=== PATIENT | female | born 1930 | race Caucasian/White ===

== ENCOUNTER 2022-09-17 08:36 | Inpatient (IN) | payer OTHER, MEDICARE ==
[~2022-09-17] VITALS: Ht 152.4 cm; Wt 59.0 kg
[~2022-09-17 08:36] MED LIST: ACET-73 PO; ACET325T PO; APIX2.5T PO; BISA10SU61 RC; CALC1CAP19 PO; CARB15DR OP; DOCU-144 PO; FAMO20TA8 PO; FURO-149 PO; HYDR-3919 PO; METO25TA6 PO; MIRT7.5T11 PO; MOM PO; POTA-197 PO; SENN8.6T19 PO; SER25 PO
[2022-09-17 08:39] VITALS: BP_SYST 155
--- NOTE | 2022-09-17 08:47 | NUR ---
PT BIBA AWAKE AND ALERT AOX3. PT C/O SHARP CHEST PAIN. PT STATED SHE NEARLY FELL YESTERDAY BUT HELD HERSELF UP, STRECHING HER ARMS AND CHEST OUT, WHICH MIGHT BE CAUSE OF PAIN. PT HAS HX OF A-FIB, HTN, CHF, DEMENTIA, DEPRESSION.
--- NOTE | 2022-09-17 08:49 | NUR ---
MD DR MCKINNON AT BEDSIDE
[2022-09-17] MEDS ORDERED: traMADol HCL HCL 50 MG TABLET (ULTRAM) PO ONE (09:00)
[2022-09-17 09:21] LABS: BASOPHILS # (AUTO) 0.1 K/uL (0.0-0.2); BASOPHILS % (AUTO) 0.8 % (0.0-2.0); EOSINOPHILS # (AUTO) 0.3 K/uL (0.0-0.4); EOSINOPHILS % (AUTO) 3.9 % (0.0-4.0); HEMATOCRIT 40.4 % (36-48); HEMOGLOBIN 13.6 g/dL (12.0-16.0); LYMPHOCYTES # (AUTO) 1.4 K/uL (1.0-5.5); MEAN CORPUSCULAR HEMOGLOBIN 32 pg (27-31); MEAN CORPUSCULAR HGB CONC 34 % (32-36); MEAN CORPUSCULAR VOLUME 94 fL (79.0-98.0); MONOCYTES # (AUTO) 0.8 K/uL (0.0-1.0); MONOCYTES % (AUTO) 9.5 % (1.7-9.3); NEUTROPHILS # (AUTO) 5.7 K/uL (1.8-7.7); NEUTROPHILS % (AUTO) 68.8 % (40.0-70.0); PLATELET COUNT (AUTO) 261 K/uL (130-430); RED CELL DISTRIBUTION WIDTH 13.9 % (9.0-15.0); WHITE BLOOD COUNT (AUTO) 8.3 K/uL (4.8-10.8)
[2022-09-17 09:22] LABS: ANION GAP 9 (5-15); CHLORIDE 105 mmol/L (98-107); CREATININE 0.97 mg/dL (0.55-1.30); GLUCOSE 95 mg/dL (70-99); UREA NITROGEN, BLOOD 26 mg/dL (8-21)
[2022-09-17 09:29] LABS: ALANINE AMINOTRANSFERASE 15 U/L (12-78); ALBUMIN 2.9 g/dL (3.4-4.8); ASPARTATE AMINOTRANSFERASE 21 U/L (10-37); TOTAL BILIRUBIN 0.7 mg/dL (0.0-1.0)
[2022-09-17] MEDS ORDERED: NITROGLYCERIN 0.4 MG TAB.SUBL SL ONE (10:30)
--- NOTE | 2022-09-17 10:35 | NUR ---
Admit bed requested Patient will be admitted to care of Dr. SIFUENTES. Admitted to TELE unit. Diagnosis CHEST Inpatient (Yes or No) YES Observation (Yes or No) NO Orientation concerns or request close to nursing station (Yes or No) NO Covid Status PENDING On vent or bipap NO Isolation requirements NO Needs a sitter NO From Home (Yes or if No enter name of facility) [facility] Requires Dialysis (Yes or No) NO Med Rec Completed (Yes of No) YES
[2022-09-17 13:30] VITALS: BP_SYST 144
[2022-09-17] MEDS: NITROGLYCERIN 0.4 MG TAB.SUBL SL PRN (13:44)
--- NOTE | 2022-09-17 13:51 | NUR ---
CONSULTATION PAGED REASON FOR CONSULTATION: CHEST PAIN WAS CONSULT CALLED? Y PERSON WHO WAS NOTIFIED: HERNANDEZ CONSULTING PHYSICIAN: HARIS KULKARNI PROJECT MANAGER/TEAM COACH SPECIALTY:CARDIO PROJECT MANAGER/TEAM COACH PHONE NUMBER:[phone] REQUESTING PHYSICIAN: YARI RUEDA
[2022-09-17 16:00] VITALS: BP_SYST 153
[2022-09-17] MEDS ORDERED: NALOXONE HCL 0.4 MG/ML AMP (NARCAN) IVP PRN (18:00)
[2022-09-17] MEDS ORDERED: CARBOXYMETHYLCELLULOSE SODIUM OP PRN (18:00)
[2022-09-17] MEDS ORDERED: ACETAMINOPHEN 325 MG TABLET PO PRN (18:00)
[2022-09-17] MEDS ORDERED: MILK OF MAGNESIA 30 ML UDC PO PRN (18:00)
[2022-09-17] MEDS ORDERED: BISACODYL 10 MG/SUPPOSITORY RC PRN (18:00)
--- NOTE | 2022-09-17 18:00 | NUR ---
admitted 89 years old female,awake,alert,forgetful at times,c/o chest pain and given nitro as prn order, came and seen pt.further orders received and carried out.needs attended,call light & personal items within pt reach safety maintained.continue to monitor pt
[2022-09-17] MEDS ORDERED: METOPROLOL TARTRATE 25 MG TABLET PO ONE (18:15)
[2022-09-17] MEDS ORDERED: PEG 400/HYPROMELLOSE/GLYCERIN 15 ML DROPS OP PRN (18:15)
--- NOTE | 2022-09-17 19:25 | NUR ---
PM ASSESSMENT; -Patient is awake, alert, oriented X2. No s/s any chest pain,sob,or any acute distress noted. IV site patent no s/s any infiltration noted. VSS. Bed alarmed, side rails x3,call light within reach. All safety measures in place. Cont to monitor pt.
--- NOTE | 2022-09-17 19:27 | NUR ---
Patient will be admitted to care of [facility]. Admitted to TELE unit. Will go to room 122B. Belongings list completed. Complete and up to date summary report printed. SBAR report to be given at bedside with opportunity for questions.
[2022-09-17 19:35] VITALS: BP_SYST 119
[2022-09-17] MEDS ORDERED: CALCIUM CARBONATE PO SCH (21:00)
[2022-09-17] MEDS ORDERED: [UNRECOGNIZED DRUG - OTHER] PO SCH (21:00)
[2022-09-17] MEDS ORDERED: MIRTAZAPINE PO SCH (21:00)
[2022-09-17] MEDS ORDERED: VITAMIN D3 PO SCH (21:00)
[2022-09-17] MEDS: SENNOSIDES 8.6 MG TABLET PO SCH (21:29)
[2022-09-17] MEDS: QUEtiapine FUMARATE 25 MG TABLET PO SCH (21:29)
[2022-09-17] MEDS: MIRTAZAPINE 15 MG TABLET PO SCH (21:29)
[2022-09-17] MEDS: CALCIUM CARBONATE/VITAMIN D3 1 TAB TABLET PO SCH (21:29)
[2022-09-17] MEDS: APIXABAN 2.5 MG TABLET PO SCH (21:31)
[2022-09-18] VITALS (7 sets, daily range): BP systolic 80–152
--- NOTE | 2022-09-18 00:11 | NUR ---
ROUNDS; -Pt is resting in bed comfortably. No s/s any chest pain,sob,or any acute distress noted. IV site patent no s/s any infiltration noted. VSS. Bed alarmed, side rails x3,call light within reach. All safety measures in place. Cont to monitor pt.
--- NOTE | 2022-09-18 03:42 | NUR ---
ROUNDS; -Pt is asleep. No s/s any chest pain,sob,or any acute distress noted. Bed alarmed, side rails x3,call light within reach. All safety measures in place. Cont to monitor pt.
--- NOTE | 2022-09-18 06:23 | NUR ---
CLOSING NOTES: -Pt is asleep. No s/s any chest pain,sob,or any acute distress noted. Bed alarmed, side rails x3,call light within reach. All safety measures in place. Pt's condition stable. Will endorse to day shift nurse to cont care.
[2022-09-18] MEDS: NITROGLYCERIN 0.4 MG TAB.SUBL SL PRN (08:04)
[2022-09-18] MEDS: CALCIUM CARBONATE/VITAMIN D3 1 TAB TABLET PO SCH ×2 (09:00→21:28)
[2022-09-18] MEDS: QUEtiapine FUMARATE 25 MG TABLET PO SCH ×2 (13:00→21:30)
[2022-09-18] MEDS: FAMOTIDINE 20 MG TABLET PO SCH (13:00)
[2022-09-18] MEDS: METOPROLOL TARTRATE 25 MG TABLET PO SCH (13:02)
[2022-09-18] MEDS: POTASSIUM CHLORIDE 20 MEQ TAB.PRT.SR PO SCH (13:03)
[2022-09-18] MEDS: FUROSEMIDE 40 MG TABLET PO SCH (13:03)
[2022-09-18] MEDS: DOCUSATE SODIUM 100 MG CAPSULE PO SCH (13:03)
[2022-09-18] MEDS: APIXABAN 2.5 MG TABLET PO SCH ×2 (13:06→21:29)
[2022-09-18] MEDS: HYDROcodone/ACETAMIN 5-325 MG TAB (NORCO/ VICODIN) PO PRN ×3 (14:38→16:32)
--- NOTE | 2022-09-18 20:31 | NUR ---
PATIENT COMPLAINED OF CP DESCRIBED BY SELF THROUGH OUT DAY REGARDLESS OF INTERVENTION'S. STATED SHE HAD PREVIOUS FALL BEFORE COMING INTO HOSPITAL. UNCLEAR IF CARDIAC PAIN OR MUSCULAR SKELETON. TREATED CHEST PAIN FUR FLOOR WORKER POINTS TO CHEST STATES MY HEART IS IN PAIN SCALE OF 1/10. NOT MUCH QUIGLEY IN PAIN LEVEL. LATER IN AFTERNOON STILL COMPLAINS OF CP THIS TIME GIVEN NORCO 325. SOME RELIEF BUT LATER GIVEN ONE FURTHER NITROGLYCERIN TABS SL AND PLACED ON OXYGEN [address]. [address] GARCIA NOTIFIED WITH NO ORDERS WILL SEE PATIENT TOMORROW. HEART RHYUM AFIB AFLUTTER WITH WIDEN QRS AND ST DEPRESSION APPEARS TO OF HAD OLD [place]. TROPONIN LEVEL NORMAL SECOND TROPONIN JOHNNA THIS AFTERNOON. DOING SOME WHAT BETTER AT END OF SHIFT AND STATED THE OXYGEN AND NTG TAB SL DID HELP.
[2022-09-18] MEDS: SENNOSIDES 8.6 MG TABLET PO SCH (21:29)
[2022-09-18] MEDS: MIRTAZAPINE 15 MG TABLET PO SCH (21:30)
[2022-09-19] VITALS: BP_SYST 105
[2022-09-19 04:00] VITALS: BP_SYST 112
[2022-09-19 08:00] VITALS: BP_SYST 153
[2022-09-19] MEDS: APIXABAN 2.5 MG TABLET PO SCH ×2 (08:34→20:36)
[2022-09-19] MEDS: DOCUSATE SODIUM 100 MG CAPSULE PO SCH (08:35)
[2022-09-19] MEDS: FAMOTIDINE 20 MG TABLET PO SCH (08:35)
[2022-09-19] MEDS: METOPROLOL TARTRATE 25 MG TABLET PO SCH (08:36)
[2022-09-19] MEDS: QUEtiapine FUMARATE 25 MG TABLET PO SCH ×2 (08:37→20:36)
[2022-09-19] MEDS: POTASSIUM CHLORIDE 20 MEQ TAB.PRT.SR PO SCH (08:37)
[2022-09-19] MEDS: CALCIUM CARBONATE/VITAMIN D3 1 TAB TABLET PO SCH ×2 (08:38→20:36)
[2022-09-19] MEDS: FUROSEMIDE 40 MG TABLET PO SCH (08:38)
[2022-09-19 11:32] VITALS: BP_SYST 120
--- NOTE | 2022-09-19 12:09 | NUR ---
Social Service Assessment The patient is an 89 year old female who appears alert with confusion I completed an initial assessment with the patient's DPOA, Awilda Ordonez, via telephone. The patient resides at [facility] as a intermediate resident. Per Awilda, the patient has resided at the facility for the last six months. The patient is non ambulatory and is confined to a wheelchair when she is not in bed. Her support is in her DPOA as well as the staff and friends of her residential care center. Her Power of Supervisor [employer] is Awilda Ordonez ([phone]). her PCP was recently changed to Dr. Leiva in [place], however she was previously with Dr. Blood in [place]. The discharge plan is to return to [facility]. The DPOA was advised that the patient will be assessed for appropriate needs and services prior to discharge. Per the DPOA, she does not want the patient going to a SNF for rehab services at discharge. The DPOA is in agreement to the patient returning to [facility]. At time of discharge, the DPOA states [facility] has transport that the patient can utilize. Transportation at [facility]: [phone] Addendum: 09/19/22 at 1222 by Chrissy Rajan DP Amended: Links added.
[2022-09-19 16:06] VITALS: BP_SYST 153
--- NOTE | 2022-09-19 19:39 | NUR ---
PATIENT MUCH BETTER TODAY NOT C/O PAIN MUCH YESTERDAY. FRONT END ALIGNMENT SPECIALIST EXPLAINED TO PATIENT HEART IS GOOD PAIN MUSCULAR SKELETON. PT TO HAVE WORKED WITH PATIENT FIRST TIME TODAY. EMOTIONAL SUPPORT THERAPEUTIC COMMUNICATION GIVEN. MUCH ENCOURAGEMENT GIVEN.
[2022-09-19 20:00] VITALS: BP_SYST 149
--- NOTE | 2022-09-19 20:00 | NUR ---
RECEIVED THE PATIENT AWAKE, ALERT, AND ORIENTED X3. ABLE TO FOLLOW COMMANDS. ABLE TO VERBALIZE WISHES AND CONCERNS. VITAL SIGNS TAKEN AND RECORDED - ALL PARAMETERS WERE WITHIN NORMAL LIMITS. BEDSIDE CARE DONE. PHYSICAL ASSESSMENT DONE AND COMPLETED. DUE ORAL MEDS GIVEN AND TAKEN. NOT IN ANY ACUTE DISTRESS OR PAIN. WILL CONTINUE TO MONITOR THE PATIENT.
[2022-09-19] MEDS: MIRTAZAPINE 15 MG TABLET PO SCH (20:36)
[2022-09-19] MEDS: SENNOSIDES 8.6 MG TABLET PO SCH (20:37)
[2022-09-20] VITALS (7 sets, daily range): BP systolic 128–153
[2022-09-20] MEDS: FUROSEMIDE 40 MG TABLET PO SCH (08:14)
[2022-09-20] MEDS: CALCIUM CARBONATE/VITAMIN D3 1 TAB TABLET PO SCH ×2 (08:15→21:10)
[2022-09-20] MEDS: QUEtiapine FUMARATE 25 MG TABLET PO SCH ×2 (08:15→21:10)
[2022-09-20] MEDS: POTASSIUM CHLORIDE 20 MEQ TAB.PRT.SR PO SCH (08:15)
[2022-09-20] MEDS: FAMOTIDINE 20 MG TABLET PO SCH (08:15)
[2022-09-20] MEDS: DOCUSATE SODIUM 100 MG CAPSULE PO SCH (08:15)
[2022-09-20] MEDS: METOPROLOL TARTRATE 25 MG TABLET PO SCH (08:17)
[2022-09-20] MEDS: APIXABAN 2.5 MG TABLET PO SCH ×2 (08:19→21:11)
[2022-09-20 12:50] LABS: BILIRUBIN,URINE NEGATIVE (NEGATIVE); CLARITY/URINE CLEAR (CLEAR); COLOR,URINE YELLOW (YELLOW); GLUCOSE,URINE NEGATIVE (NEGATIVE); KETONES,URINE NEGATIVE (NEGATIVE); LEUKOCYTE ESTERASE ,URINE NEGATIVE (NEGATIVE); NITRITE, URINE NEGATIVE (NEGATIVE); PROTEIN URINE NEGATIVE (NEGATIVE); UROBILINOGEN,URINE 0.2 (0.2-1.0)
[2022-09-20 12:54] LABS: BLOOD, URINE TRACE (NEGATIVE)
[2022-09-20 14:09] LABS: BACTERIA,URINE None Seen /HPF (None Seen); RBC,URINE NONE SEEN /HPF (0-3); WBC,URINE 0-3 /HPF (0-3)
[2022-09-20 14:10] LABS: MUCUS,URINE None Seen /LPF (None Seen)
--- NOTE | 2022-09-20 15:00 | NUR ---
INFORMED MONE VERBALLY THAT THE FACILITY HAS NO VIDEO SOFTWARE ENGINEER TODAY AND TOMORROW, MONE SAID SHE WILL GET AMBULANCE TO TRANSPORT PT.
--- NOTE | 2022-09-20 15:07 | NUR ---
LEFT MESSAGE WITH MONE ELECTRICAL CALIBRATOR TO INFORM HER THAT PT HAS DC HOME ORDER BUT NOBODY TO PICK HER UP BECAUSE FACILITY MOTOR AND CONTROLS TESTER IS NOT AVAILABLE.
--- NOTE | 2022-09-20 15:41 | NUR ---
PHYSICAL THERAPY CO-SIGN The Physical Therapy Progress Notes documented by Argon Tester have been reviewed. Reviewed/Co-Signed by: Serafin Gasca Documentation Done by:DIANA APLM
--- NOTE | 2022-09-20 15:42 | NUR ---
PHYSICAL THERAPY CO-SIGN The Physical Therapy Progress Notes documented by Outreach Specialist have been reviewed. Reviewed/Co-Signed by: Serafin Gasca Documentation Done by:DIANA PALM Addendum: 09/20/22 at 1542 by Serafin Gasca PT Amended: Links added.
[2022-09-20] MEDS: MUPIROCIN 2% TOPICAL OINTMENT 22 GM TP SCH ×2 (15:49→21:15)
--- NOTE | 2022-09-20 16:10 | NUR ---
PT DISCHARGE TO [facility] (APARTMENT) P#[phone]. AMBULANCE MEDIC 1 [address] OR MIRROR INSPECTOR TIME 8:00PM PHONE #[phone]. FOR REFERENCE
--- NOTE | 2022-09-20 16:21 | NUR ---
INFORMED [facility] AT [facility] THAT PT IS GOING TO BE PICKED UP AT 8PM.
--- NOTE | 2022-09-20 19:30 | NUR ---
PER [facility], AMBULANCE CALL SAYING THEY CANNOT MANAGER BOOKS PT BECAUSE THEY ARE TOO SATURATED". THE AMBULANCE REQUEST TO ARRANGE TRANSPORT IN AM. INFORMED REPAIRER GENERAL ZENY. SHE INSTRUCTED [facility] TO FIND ANOTHER AMBULANCE.
--- NOTE | 2022-09-20 19:57 | NUR ---
Called [facility], spoke to Joseph. ETA is midnight
--- NOTE | 2022-09-20 20:07 | NUR ---
Report received from day shift RN for continuity of care. Patient stable. No distress noted. Ambulance [facility] ETA midnight.
[2022-09-20] MEDS: MIRTAZAPINE 15 MG TABLET PO SCH (21:10)
[2022-09-20] MEDS: SENNOSIDES 8.6 MG TABLET PO SCH (21:10)
--- NOTE | 2022-09-21 | NUR ---
Report given to [facility] ambulance EMT for continuity of care. Patient stable for transfer. Alert and oriented x2-3. Respiration even and unlabored. No c/o pain. Patient changed into depends and fresh gown. IV removed. avionics integration engineer removed. Patient belongings with patient. Patient ready for transfer.
[2022-09-21 00:48] VITALS: BP_SYST 139
[2022-09-21 04:00] VITALS: BP_SYST 124
[2022-09-22 09:48] LABS: ALANINE AMINOTRANSFERASE 12 U/L (12-78); ALBUMIN 2.8 g/dL (3.4-4.8); ANION GAP 6 (5-15); ASPARTATE AMINOTRANSFERASE 13 U/L (10-37); CHLORIDE 105 mmol/L (98-107); CREATININE 1.19 mg/dL (0.55-1.30); GLUCOSE 97 mg/dL (70-99); TOTAL BILIRUBIN 0.5 mg/dL (0.0-1.0); UREA NITROGEN, BLOOD 41 mg/dL (8-21)
[2022-09-22 09:54] LABS: BASOPHILS # (AUTO) 0.1 K/uL (0.0-0.2); BASOPHILS % (AUTO) 0.7 % (0.0-2.0); EOSINOPHILS # (AUTO) 0.3 K/uL (0.0-0.4); EOSINOPHILS % (AUTO) 3.1 % (0.0-4.0); HEMATOCRIT 41.8 % (36-48); LYMPHOCYTES # (AUTO) 1.4 K/uL (1.0-5.5); MEAN CORPUSCULAR HEMOGLOBIN 32 pg (27-31); MEAN CORPUSCULAR HGB CONC 34 % (32-36); MEAN CORPUSCULAR VOLUME 94 fL (79.0-98.0); MONOCYTES # (AUTO) 0.6 K/uL (0.0-1.0); MONOCYTES % (AUTO) 7.3 % (1.7-9.3); NEUTROPHILS # (AUTO) 6.1 K/uL (1.8-7.7); NEUTROPHILS % (AUTO) 71.9 % (40.0-70.0); PLATELET COUNT (AUTO) 280 K/uL (130-430); RED BLOOD CELL COUNT(AUTO) 4.45 MIL/uL (4.2-6.2); RED CELL DISTRIBUTION WIDTH 13.6 % (9.0-15.0); WHITE BLOOD COUNT (AUTO) 8.5 K/uL (4.8-10.8)
== END 2022-09-21 00:10 | disposition home or self-care (01) | DRG 206 ==
LOC: SED 08:36 → STU 10:29 → SMU 09-20 23:17
PROVIDERS: ADMIT Family Medicine; ATTEND Family Medicine
DX: M94.0 Chondrocostal junction syndrome [Tietze] (principal); E44.0 Moderate protein-calorie malnutrition; D68.59 Other primary thrombophilia; I48.20 Chronic atrial fibrillation, unspecified; F03.A0 Unspecified dementia, mild, without behavioral disturbance, psychotic disturbance, mood disturbance, and anxiety; M81.0 Age-related osteoporosis without current pathological fracture; I25.5 Ischemic cardiomyopathy; Z20.822 Contact with and (suspected) exposure to COVID-19; Z87.01 Personal history of pneumonia (recurrent); Z79.891 Long term (current) use of opiate analgesic; Z79.899 Other long term (current) drug therapy; Z85.3 Personal history of malignant neoplasm of breast; Z86.16 Personal history of COVID-19; I25.2 Old myocardial infarction; Z68.25 Body mass index [BMI] 25.0-25.9, adult; Z99.3 Dependence on wheelchair; Z87.891 Personal history of nicotine dependence; Z90.11 Acquired absence of right breast and nipple; Z90.710 Acquired absence of both cervix and uterus
CPT/HCPCS: 36415; 71045; 80053; 81000; 83880; 84484; 85025; 87045-TC; 87046; 87081; 87230-TC; 89055; 93005; 97110-GP; 97116-GP; 97530-GP; 99285; G0378

== ENCOUNTER 2022-09-21 09:38 | Inpatient (IN) | payer OTHER, MEDICARE ==
[~2022-09-21] VITALS: Ht 152.4 cm; Wt 40.8 kg
--- NOTE | 2022-09-21 09:40 | NUR ---
PT BIBA AWAKE AND CONFUSED, AOX1. PT C/O CHEST PAIN. PT WAS D/C FROM [facility] TELE FLOOR YESTERDAY.
[2022-09-21 09:42] VITALS: BP_SYST 137
--- NOTE | 2022-09-21 09:42 | NUR ---
MD DR MULLINS AT BEDSIDE
[2022-09-21] MEDS ORDERED: MORPHINE 4 MG INJ. 4 MG/ML VIAL IVP ONE ×2 (10:15→23:30)
[2022-09-21] MEDS ORDERED: NITROGLYCERIN 1 INCH (GM) OINT. TP ONE ×2 (10:15→23:30)
[2022-09-21 10:28] LABS: BASOPHILS # (AUTO) 0.1 K/uL (0.0-0.2); BASOPHILS % (AUTO) 0.7 % (0.0-2.0); EOSINOPHILS # (AUTO) 0.2 K/uL (0.0-0.4); EOSINOPHILS % (AUTO) 2.1 % (0.0-4.0); HEMATOCRIT 46.8 % (36-48); HEMOGLOBIN 15.5 g/dL (12.0-16.0); LYMPHOCYTES # (AUTO) 1.5 K/uL (1.0-5.5); MEAN CORPUSCULAR HEMOGLOBIN 31 pg (27-31); MEAN CORPUSCULAR HGB CONC 33 % (32-36); MEAN CORPUSCULAR VOLUME 94 fL (79.0-98.0); MONOCYTES # (AUTO) 0.7 K/uL (0.0-1.0); NEUTROPHILS # (AUTO) 6.7 K/uL (1.8-7.7); NEUTROPHILS % (AUTO) 73.2 % (40.0-70.0); PLATELET COUNT (AUTO) 302 K/uL (130-430); RED BLOOD CELL COUNT(AUTO) 4.96 MIL/uL (4.2-6.2); RED CELL DISTRIBUTION WIDTH 13.8 % (9.0-15.0); WHITE BLOOD COUNT (AUTO) 9.2 K/uL (4.8-10.8)
--- NOTE | 2022-09-21 11:05 | NUR ---
COVID AND MRSA NASAL SWAB DONE AT BEDSIDE AND SENT TO LAB
--- NOTE | 2022-09-21 11:27 | NUR ---
Admit bed requested Patient will be admitted to care of Dr. SIFUENTES. Admitted to TELE unit. Diagnosis CHEST PAIN Inpatient (Yes or No) YES Observation (Yes or No) NO Orientation concerns or request close to nursing station (Yes or No) NO Covid Status NEG On vent or bipap NO Isolation requirements NO Needs a sitter NO From Home (Yes or if No enter name of facility) [facility] Requires Dialysis (Yes or No) NO Med Rec Completed (Yes of No) YES
[2022-09-21 15:13] LABS: ALANINE AMINOTRANSFERASE 17 U/L (12-78); ALBUMIN 3.3 g/dL (3.4-4.8); ANION GAP 9 (5-15); ASPARTATE AMINOTRANSFERASE 17 U/L (10-37); CALCIUM 9.5 mg/dL (8.4-11.0); CHLORIDE 102 mmol/L (98-107); TOTAL BILIRUBIN 0.5 mg/dL (0.0-1.0)
[2022-09-21 15:14] LABS: CREATININE 1.34 mg/dL (0.55-1.30); GLUCOSE 141 mg/dL (70-99); UREA NITROGEN, BLOOD 41 mg/dL (8-21)
[2022-09-21] MEDS ORDERED: traMADol HCL HCL 50 MG TABLET (ULTRAM) PO PRN (16:00)
[2022-09-21] MEDS ORDERED: HYDROcodone/ACETAMIN 5-325 MG TAB (NORCO/ VICODIN) PO PRN (16:00)
[2022-09-21] MEDS ORDERED: BISACODYL 10 MG/SUPPOSITORY RC PRN (16:00)
[2022-09-21] MEDS ORDERED: NITROGLYCERIN 0.4 MG TAB.SUBL SL PRN (16:00)
[2022-09-21] MEDS ORDERED: ONDANSETRON HCL 4 MG/2 ML VIAL IVP PRN (16:00)
[2022-09-21] MEDS ORDERED: NALOXONE HCL 0.4 MG/ML AMP (NARCAN) IVP PRN (16:00)
[2022-09-21] MEDS ORDERED: MILK OF MAGNESIA 30 ML UDC PO PRN (16:00)
[2022-09-21] MEDS ORDERED: FAMOTIDINE 20 MG TABLET PO SCH (16:00)
[2022-09-21] MEDS ORDERED: ACETAMINOPHEN 325 MG TABLET PO PRN ×2 (16:00)
[2022-09-21] MEDS ORDERED: METOPROLOL SUCCINATE 25 MG TAB.SR.24H (TOPROL XL) PO ONE (18:00)
[2022-09-21] MEDS ORDERED: METOPROLOL TARTRATE 25 MG TABLET ONE (18:55)
--- NOTE | 2022-09-21 19:16 | NUR ---
REPORT GIVEN TO CLARA OCHOA FOR RESUMPTION OF CARE. PT STABLE
--- NOTE | 2022-09-21 19:19 | NUR ---
PT RECEIVED, CARE ASSUMED. PT AWAKE AND ALERT. INTRODUCED MYSELF. PT LAYING IN BED CALM, RELAXED. NO ACUTE DISTRESS NOTED. VITAL SIGNS NOTED. WILL CONTINUE TO MONITOR
[2022-09-21] MEDS: QUEtiapine FUMARATE 25 MG TABLET PO SCH (20:29)
[2022-09-21] MEDS: SENNOSIDES 8.6 MG TABLET PO SCH (20:29)
[2022-09-21] MEDS: MIRTAZAPINE 15 MG TABLET PO SCH (20:29)
[2022-09-21] MEDS: CALCIUM 500 MG/TAB PO SCH (20:30)
[2022-09-21] MEDS: FUROSEMIDE 20 MG TABLET PO SCH (20:30)
[2022-09-21] MEDS: APIXABAN 2.5 MG TABLET PO SCH (21:00)
[2022-09-21] MEDS ORDERED: ENOXAPARIN SODIUM 40 MG/0.4 ML SYRINGE SUBCUT SCH (21:00)
[2022-09-21] MEDS ORDERED: CALCIUM CARBONATE 650 MG TABLET PO SCH (21:00)
[2022-09-21] MEDS ORDERED: MIRTAZAPINE PO SCH (21:00)
[2022-09-22 05:52] LABS: ANION GAP 9 (5-15); CHLORIDE 105 mmol/L (98-107); CREATININE 1.19 mg/dL (0.55-1.30); GLUCOSE 100 mg/dL (70-99); UREA NITROGEN, BLOOD 43 mg/dL (8-21)
[2022-09-22] MEDS ORDERED: PEG 400/HYPROMELLOSE/GLYCERIN 15 ML DROPS OP PRN (06:45)
--- NOTE | 2022-09-22 07:15 | NUR ---
received report harry wills pt resting in bed in stable condition, vss
--- NOTE | 2022-09-22 07:52 | NUR ---
APPLIED AIDET, PT RESTING IN BED COMFORTABLE, RESPIRATIONS EVEN NON LABORED
[2022-09-22] MEDS: FAMOTIDINE 20 MG TABLET PO SCH (09:00)
[2022-09-22] MEDS: APIXABAN 2.5 MG TABLET PO SCH ×2 (09:00→21:50)
[2022-09-22] MEDS: FUROSEMIDE 20 MG TABLET PO SCH ×2 (09:00→21:49)
[2022-09-22] MEDS: CALCIUM 500 MG/TAB PO SCH ×2 (09:00→21:51)
--- NOTE | 2022-09-22 09:00 | NUR ---
PT SITTING UP IN BED EATING BREAKFAST IN STABLE CONDITION
[2022-09-22] MEDS: DOCUSATE SODIUM 100 MG CAPSULE PO SCH (10:39)
[2022-09-22] MEDS: CHOLECALCIFEROL (VITAMIN D3) 5,000 UNIT TABLET PO SCH (10:41)
[2022-09-22] MEDS: METOPROLOL SUCCINATE 25 MG TAB.SR.24H (TOPROL XL) PO SCH (10:44)
--- NOTE | 2022-09-22 15:31 | NUR ---
PT SOAKED IN DIAPER, EMT AND MYSELF ,PROVIDED CLEAN LINEN, PERICARE AND GOWN
--- NOTE | 2022-09-22 20:30 | NUR ---
Patient will be admitted to care of DR. BRINK. Admitted to TELEMETRY unit. Will go to room 106A. Belongings list completed. Complete and up to date summary report printed. SBAR report to be given at bedside with opportunity for questions.
[2022-09-22 20:45] VITALS: BP_SYST 157
[2022-09-22] MEDS: SENNOSIDES 8.6 MG TABLET PO SCH (21:48)
[2022-09-22] MEDS: QUEtiapine FUMARATE 25 MG TABLET PO SCH (21:50)
[2022-09-22] MEDS: MIRTAZAPINE 15 MG TABLET PO SCH (21:51)
[2022-09-22 22:30] VITALS: BP_SYST 155
--- NOTE | 2022-09-22 22:30 | NUR ---
RECEIVED PT FROM ER AT THIS TIME [facility]IA [facility], [facility], EVEN AND UNLABORED BREATHING, DENIED ANY SOB, CP OR PAIN. IV ACCESS ON RFA PATENT, V/S CHECKED AND FOUND TO BE ELEVATED 155/89, DUE BP DUE GIVEN, COMPLETE BODY CHECK REVEALED INTACT SKIN, DRY AND FLAKY SKIN ON BLE, BED REST, CARDIAC DIET, ORIENTED PT TO ROOM, CALL LIGHT, LOW BED, WILL CONTINUE WITH POC
--- NOTE | 2022-09-22 22:49 | NUR ---
CONSULTATION PAGED/CALLED Reason for Consultation: chest pain Person Who was Notified: Amy Consulting Physician: Dr. Pablo Electrical Engineering Professor Specialty: cardiolodist Ordering Physician: Dr. Matthews
[2022-09-23] VITALS: BP_SYST 142
--- NOTE | 2022-09-23 06:26 | NUR ---
PT AOX3, EVEN AND UNLABORED BREATHING, SLEPT THROUGHOUT THE NIGHT, NO C/O SOB, CP, OR ANY OTHER PAIN, SALINE LOCK TO RFA , INCONTINENT OF B/B, BEDREST, tolerating 2G Na and mechanical diet, safety prec maintained, low bed, call light within reach, will endorse to incoming RN
--- NOTE | 2022-09-23 06:46 | NUR ---
requesting POLST from [facility], no answer Per the records from [facility] at [address], the patient is DNR on face sheet information Called [phone] to request copy of DNR form and did not get a reply; voice mail is full
[2022-09-23 08:00] VITALS: BP_SYST 142
[2022-09-23] MEDS: CHOLECALCIFEROL (VITAMIN D3) 5,000 UNIT TABLET PO SCH (09:14)
[2022-09-23] MEDS: DOCUSATE SODIUM 100 MG CAPSULE PO SCH (09:14)
[2022-09-23] MEDS: FAMOTIDINE 20 MG TABLET PO SCH (09:15)
[2022-09-23] MEDS: METOPROLOL SUCCINATE 25 MG TAB.SR.24H (TOPROL XL) PO SCH (09:16)
[2022-09-23] MEDS: FUROSEMIDE 20 MG TABLET PO SCH ×2 (09:17→22:42)
[2022-09-23] MEDS: CALCIUM 500 MG/TAB PO SCH ×2 (09:17→22:39)
[2022-09-23] MEDS: APIXABAN 2.5 MG TABLET PO SCH ×2 (09:17→22:43)
[2022-09-23 11:26] VITALS: BP_SYST 112
[2022-09-23 15:29] VITALS: BP_SYST 118
[2022-09-23 20:00] VITALS: BP_SYST 134
[2022-09-23] MEDS: SENNOSIDES 8.6 MG TABLET PO SCH (22:38)
[2022-09-23] MEDS: MIRTAZAPINE 15 MG TABLET PO SCH (22:39)
[2022-09-23] MEDS: QUEtiapine FUMARATE 25 MG TABLET PO SCH (22:42)
[2022-09-24 04:17] VITALS: BP_SYST 149
--- NOTE | 2022-09-24 06:00 | NUR ---
Miss May has been assessed as indicated. She is pleasantly confused and makes no attempts to ambulate without assistance. She is having loose stools. She has been given scheduled laxatives. CDIFF was not sent to lab today. She denies pain. She has been cleansed of stool often this shift. she is presently resting quietly with no s/s of distress or discomfort at this time
--- NOTE | 2022-09-24 07:30 | NUR ---
OPENING NOTE; PT RESTING IN BED, BREATHING NON-LABORED AND REGULAR ON ROOM AIR. DENIES ANY PAIN OR DISCOMFORT. IV SL INTACT. WIG AT BEDSIDE. BED IS LOCKED AND AT LOW POSITION. ENCOURAGED PT TO USE CALL LIGHT FOR ASSISTANCE. WILL CONT TO MONITOR
--- NOTE | 2022-09-24 07:30 | NUR ---
Handoff has been given to Annmarie
[2022-09-24 08:00] VITALS: BP_SYST 137
[2022-09-24] MEDS: CHOLECALCIFEROL (VITAMIN D3) 5,000 UNIT TABLET PO SCH (08:32)
[2022-09-24] MEDS: DOCUSATE SODIUM 100 MG CAPSULE PO SCH (08:32)
[2022-09-24] MEDS: METOPROLOL SUCCINATE 25 MG TAB.SR.24H (TOPROL XL) PO SCH (08:32)
[2022-09-24] MEDS: FAMOTIDINE 20 MG TABLET PO SCH (08:33)
[2022-09-24] MEDS: FUROSEMIDE 20 MG TABLET PO SCH (08:33)
[2022-09-24] MEDS: CALCIUM 500 MG/TAB PO SCH (08:33)
[2022-09-24] MEDS: APIXABAN 2.5 MG TABLET PO SCH (08:34)
[2022-09-24 11:27] VITALS: BP_SYST 131
--- NOTE | 2022-09-24 11:55 | NUR ---
Patient to DC to [facility] at [phone]-[place]- They will provide transport. Dr Matthews gave the order for discharge. DPOA agreed to transfer- Gabby Ordonez.
--- NOTE | 2022-09-24 12:14 | NUR ---
PAGED DR. SIFUENTES FOR DISCHARGE ORDER
[2022-09-24 12:16] VITALS: BP_SYST 135
--- NOTE | 2022-09-24 12:30 | NUR ---
NOTES; NO DIARRHEA NOTED
--- NOTE | 2022-09-24 13:20 | NUR ---
D/C Patient Patient given medication reconciliation form and D/C instructions. Patient verbalized understanding. MD discussed with patient the results and treatment provided. Patient picked up by transportation arranged by assisted living via wheelchair . Patient in stable condition, ID band removed. IV catheter removed, intact and dressing applied, no active bleeding. Patient educated on pain management. All belongings sent with patient. Addendum: 09/24/22 at 1415 by Mazin Koehler RN Pt had wig and ring with her at the time of her dc
--- NOTE | 2022-09-24 15:12 | NUR ---
PHYSICAL THERAPY CO-SIGN The Physical Therapy Progress Notes documented by Gold Beater have been reviewed. Reviewed/Co-Signed by: Serafin Gasca Documentation Done by:DIANA PALM Addendum: 09/24/22 at 1513 by Serafin Gasca PT Amended: Links added.
== END 2022-09-24 13:35 | disposition home or self-care (01) | DRG 206 ==
LOC: SED 09:38 → STU 11:25
PROVIDERS: ADMIT Family Medicine; ATTEND Family Medicine
DX: M94.0 Chondrocostal junction syndrome [Tietze] (principal); I48.20 Chronic atrial fibrillation, unspecified; R64 Cachexia; Z68.1 Body mass index [BMI] 19.9 or less, adult; I50.9 Heart failure, unspecified; I11.0 Hypertensive heart disease with heart failure; F03.90 Unspecified dementia, unspecified severity, without behavioral disturbance, psychotic disturbance, mood disturbance, and anxiety; I25.10 Atherosclerotic heart disease of native coronary artery without angina pectoris; I25.5 Ischemic cardiomyopathy; M19.90 Unspecified osteoarthritis, unspecified site; Z20.822 Contact with and (suspected) exposure to COVID-19; E78.5 Hyperlipidemia, unspecified; K21.9 Gastro-esophageal reflux disease without esophagitis; R53.81 Other malaise; I25.2 Old myocardial infarction; M81.0 Age-related osteoporosis without current pathological fracture; Z85.3 Personal history of malignant neoplasm of breast; Z87.891 Personal history of nicotine dependence; Z90.11 Acquired absence of right breast and nipple; Z90.710 Acquired absence of both cervix and uterus
CPT/HCPCS: 36415; 71045; 80048; 80053; 83735; 83880; 84484; 85025; 85379; 87081; 93005; 96374; 97110-GP; 97163-GP; 97530-GP; 99291; G0378; J2270